=== PATIENT | female | born 1945 | race Caucasian/White ===

== ENCOUNTER 2017-03-05 10:48 | Outpatient (CLI) | payer MEDICARE, OTHER ==
[2014-11-01 13:03] VITALS: BMI 38.7
[~2017-03-05 10:48] MED LIST: BAYER CHEWABLE81 MG PO; BENADRYL INJ50 MG/ML IV; COZAAR50 MG PO; DETROL2 MG PO; ELIQUIS2.5 MG PO; GLUCOPHAGE1000 MG PO; GLUCOTROL 5 MG T5 MG PO; HCTZ25 MG PO; HYDROCODONE-APA1 TAB PO; KLONOPIN0.5 MG PO; MS CONTIN15 MG PO; MULTIPLE VITAMI1 TA1 PO; NORVASC5 MG PO; SYNTHROID100 MCG PO; ZOCOR40 MG PO
== END 2017-03-05 13:49 ==
LOC: D.MAMMO 10:48
DX: Z12.31 Encounter for screening mammogram for malignant neoplasm of breast (principal)

== ENCOUNTER → 2018-01-20 13:25 | Outpatient (CLI) | payer MEDICARE, OTHER ==
[2014-11-01 13:03] VITALS: BMI 38.7
== END | disposition home or self-care (01) ==
LOC: D.CT 13:25 → D.MRI 14:00 → D.CT 14:00
DX: R41.3 Other amnesia (principal)

== ENCOUNTER 2018-06-08 10:59 | Inpatient (IN) | payer MEDICARE, OTHER ==
[~2018-06-08] VITALS: Ht 167.6 cm; Wt 93.9 kg
--- NOTE | ~2018-06-08 | PN ---
PATIENT:LINDY COBOS MEDICAL RECORD: [id number] LOCATION:[facility] ADMISSION DATE: 06/08/18 PROGRESS NOTE DATE OF SERVICE: 06/19/2018 SUBJECTIVE: The patient's case was discussed with staff. She has no new complaint. OBJECTIVE: The patient is in good behavioral control with limited insight about her condition. ASSESSMENT: No change in diagnoses. PLAN: Brief supportive and educational interventions were made. Long-term prognosis is guarded. I am going to give her Klonopin, but just at bedtime for another day or two. I think that if this level of improvement continues, she can be discharged on Thursday. TRANSINT:[id number] Voice Confirmation ID: [id number] DOCUMENT ID: [id number] HOMER WOODSON MD at 1107 CC: [id number] DICTATION DATE: 06/19/18 1046 SAIL REPAIR PERSON: 06/19/18 1249 ADM IN [place] [address] [place] [address]
--- NOTE | ~2018-06-08 | PN ---
PATIENT:LINDY COBOS MEDICAL RECORD: [id number] LOCATION:[facility] ADMISSION DATE: 06/08/18 PROGRESS NOTE DATE OF SERVICE: 06/17/2018 SUBJECTIVE: The patient's case was discussed with staff. She has no new complaint. OBJECTIVE: The patient is in good behavioral control with limited insight about her condition. She tolerates her medicines well. ASSESSMENT: No change in diagnoses. PLAN: Supportive and educational interventions were made. Long-term prognosis is guarded. I anticipate she can be transitioned out of the hospital soon if this level of improvement continues. TRANSINT:[id number] Voice Confirmation ID: [id number] DOCUMENT ID: [id number] HOMER WOODSON MD at 1613 CC: [id number] DICTATION DATE: 06/17/18 1239 SOAKER HIDES: 06/17/18 1256 ADM IN [place] [id number] [place] [id number]
--- NOTE | ~2018-06-08 | PN ---
PATIENT:LINDY COBOS MEDICAL RECORD: [id number] LOCATION:[facility] ADMISSION DATE: 06/08/18 PROGRESS NOTE DATE OF SERVICE: 06/14/2018 SUBJECTIVE: The patient's case was discussed with staff. OBJECTIVE: The patient is tearful and very anxious. She is having trouble describing what is bothering her or at least I am having trouble understanding it. It appears that she is somehow upset with her family that she thinks she is supposed to have a ride home, but does not accept or understand that she is a patient here. ASSESSMENT: No change in diagnoses. PLAN: The patient is very disorganized in her thought processes. I am going to discontinue her Seroquel and will start her on a dose of Trilafon to assist with thought disorganization. TRANSINT:[id number] Voice Confirmation ID: [id number] DOCUMENT ID: [id number] HOMER WOODSON MD at 1354 CC: [id number] DICTATION DATE: 06/14/18 1508 FACILITIES MECHANICAL DESIGN ENGINEER: 06/14/18 1525 ADM IN [place] [address] [place] [address]
--- NOTE | ~2018-06-08 | PN ---
PATIENT:LINDY COBOS MEDICAL RECORD: [id number] LOCATION:[facility] ADMISSION DATE: 06/08/18 PROGRESS NOTE DATE OF SERVICE: 06/13/2018 SUBJECTIVE: The patient's case was discussed with staff. She has no new complaint. OBJECTIVE: The patient denies intent to harm herself or others. She is still very tearful and today delusional, crying, because she believes she is . When asked why she believes this, she just points to her abdomen, which is large because she is overweight and says that she is certain she is . She cannot be redirected from this. ASSESSMENT: No change in diagnoses. PLAN: Current medicines have been reviewed. I am going to increase the dose of her Klonopin to 0.25 mg 3 times daily. Her long-term prognosis is guarded. TRANSINT:[id number] Voice Confirmation ID: [id number] DOCUMENT ID: [id number] HOMER WOODSON MD at 1426 CC: [id number] DICTATION DATE: 06/13/18 1231 CLERK: 06/13/18 1314 ADM IN [place] [address] [place] [address]
--- NOTE | ~2018-06-08 | PN ---
PATIENT:LINDY COBOS MEDICAL RECORD: [id number] LOCATION:[facility] ADMISSION DATE: 06/08/18 PROGRESS NOTE DATE OF SERVICE: 06/15/2018 SUBJECTIVE: The patient's case was discussed with staff. She has no new complaint. OBJECTIVE: The patient is in good behavioral control and has not been combative. She actually is much more euthymic when I speak with her. Although, the nursing report indicated she had been very tearful this morning. ASSESSMENT: No change in diagnoses. PLAN: Supportive and educational interventions were made. Long-term prognosis is guarded. TRANSINT:[id number] Voice Confirmation ID: [id number] DOCUMENT ID: [id number] HOMER WOODSON MD at 0827 CC: [id number] DICTATION DATE: 06/15/18 1438 ENGINE TURNER: 06/15/18 1446 ADM IN [place] [id number] [place] [id number]
--- NOTE | ~2018-06-08 | PN ---
PATIENT:LINDY COBOS MEDICAL RECORD: [id number] LOCATION:[facility] ADMISSION DATE: 06/08/18 PROGRESS NOTE DATE OF SERVICE: 06/11/2018 SUBJECTIVE: The patient's case was discussed with staff. She has no new complaint. OBJECTIVE: The patient has not been aggressive. She is eating well and sleeping reasonably well. ASSESSMENT: No change in diagnoses. PLAN: Supportive and educational interventions were made. Long-term prognosis is guarded. I have started the patient on Namenda to improve her cognitive performance. TRANSINT:[id number] Voice Confirmation ID: [id number] DOCUMENT ID: [id number] HOMER WOODSON MD at 1151 CC: [id number] DICTATION DATE: 06/11/18 1454 DIRECTOR OF BUSINESS APPLICATIONS: 06/11/18 1651 ADM IN [facility] [address] [place] [address]
--- NOTE | ~2018-06-08 | PN ---
PATIENT:LINDY COBOS MEDICAL RECORD: [id number] LOCATION:[facility] ADMISSION DATE: 06/08/18 PROGRESS NOTE DATE OF SERVICE: 06/16/2018 SUBJECTIVE: The patient's case was discussed with staff. She has no new complaint. OBJECTIVE: The patient is in better behavioral control and not nearly as tearful as she has been. She is tolerating her medicines well. She denies that she would seek to harm herself or others. ASSESSMENT: No change in diagnoses. PLAN: Current medicines and therapies have been reviewed and will be maintained. I am going to increase the dose of her Zoloft to 50 mg daily. TRANSINT:[id number] Voice Confirmation ID: [id number] DOCUMENT ID: [id number] HOMER WOODSON MD at 1127 CC: [id number] DICTATION DATE: 06/16/18 1042 DECK BUILDER: 06/16/18 1114 ADM IN [facility] [address] [place] [address]
--- NOTE | ~2018-06-08 | PN ---
PATIENT:LINDY COBOS MEDICAL RECORD: [id number] LOCATION:[facility] ADMISSION DATE: 06/08/18 PROGRESS NOTE DATE OF SERVICE: 06/12/2018 SUBJECTIVE: The patient's case was discussed with staff. She has no new complaint. OBJECTIVE: The patient is quite anxious and tearful. She does not understand what is transpiring. ASSESSMENT: No change in diagnoses. PLAN: Current medicines and therapies have been reviewed. Her long-term prognosis is guarded. I am going to start her on a low dose of Seroquel to treat her underlying depressive symptoms. TRANSINT:[id number] Voice Confirmation ID: [id number] DOCUMENT ID: [id number] HOMER WOODSON MD at 1157 CC: [id number] DICTATION DATE: 06/12/18 121 COVERED BUCKLE ASSEMBLER: 06/12/18 1217 ADM IN [place] [id number] [place] [id number]
--- NOTE | ~2018-06-08 | PN ---
PATIENT:LINDY COBOS MEDICAL RECORD: [id number] [facility] ADMISSION DATE: 06/08/18 PROGRESS NOTE DATE OF SERVICE: 06/20/2018 SUBJECTIVE: The patient's case was discussed with staff. She has no new complaint. OBJECTIVE: The patient is in good behavioral control with limited insight about her condition. She does tolerate her medicines well. ASSESSMENT: No change in diagnoses. PLAN: Current medicines have been reviewed. I am going to increase the dose of the Zoloft and the BuSpar slightly. I anticipate she can be transitioned out of the hospital soon. TRANSINT:[id number] Voice Confirmation ID: [id number] DOCUMENT ID: [id number] HOMER WOODSON MD at 1100 CC: [id number] DICTATION DATE: 06/20/18 1128 AUTO TECH: 06/20/18 1352 ADM IN [facility] [address] [place] [address]
--- NOTE | ~2018-06-08 | PN ---
PATIENT:LINDY COBOS MEDICAL RECORD: [id number] LOCATION:[facility] ADMISSION DATE: 06/08/18 PROGRESS NOTE DATE OF SERVICE: 06/18/2018 SUBJECTIVE: The patient's case was discussed with staff. She has no new complaint. OBJECTIVE: The patient is in good behavioral control with limited insight about her condition. She is much calmer. ASSESSMENT: No change in diagnoses. PLAN: Supportive and educational interventions were made. Long-term prognosis is guarded. The patient is much calmer than she had previously been. TRANSINT:[id number] Voice Confirmation ID: [id number] DOCUMENT ID: [id number] HOMER WOODSON MD at 1007 CC: [id number] DICTATION DATE: 06/18/18 1653 BEAD FLIPPER: 06/18/18 1732 ADM IN [place] [address] [place] [address]
--- NOTE | ~2018-06-08 | PN ---
PATIENT:ILNDY COBOS MEDICAL RECORD: [id number] LOCATION:[facility] ADMISSION DATE: 06/08/18 PROGRESS NOTE DATE OF SERVICE: 06/21/2018 SUBJECTIVE: The patient's case was discussed with staff. She has no new complaint. OBJECTIVE: The patient is in good behavioral control with limited insight about her condition. She tolerates her medicines well. ASSESSMENT: No change in diagnoses. PLAN: Brief supportive and educational interventions were made. Long-term prognosis is guarded. Followup is to be with her primary care physician. She needs to have structure and regularity to her day along with supportive environment. The family is going to provide this along with 24-hour a day supervision. I do not see any evidence of acute or direct dangerousness, but I am concerned about her long-term prognosis. It is very difficult to do the things at home that the family is going to be asked to do, but they have agreed. The other issue is her condition is progressive, it will worsen. The only issue is how fast or slow it will be in worsening. She is going to be discharged today at her request and the family's request. Follow up will be with the primary care physician. TRANSINT:[id number] Voice Confirmation ID: [id number] DOCUMENT ID: [id number] HOMER WOODSON MD at 1348 CC: [id number] DICTATION DATE: 06/21/18 1137 LIEUTENANT FIREFIGHTER: 06/21/18 1442 DIS IN 06/21/18 [place] [address] [place] [address]
--- NOTE | ~2018-06-08 | PSY ---
PATIENT NAME:LINDY COBOS MEDICAL RECORD: [id number] : 45 LOCATION:[facility] ADMISSION DATE: 06/08/18 ACCOUNT: [id number] PSYCHIATRIC EVALUATION DATE OF EVALUATION: 06/09/18 IDENTIFYING DATA: The patient is 73 years old and she is admitted to the hospital on a voluntary basis. CHIEF COMPLAINT: Aggression. HISTORY OF PRESENT ILLNESS: The patient lives at home with her family. She has an established diagnosis of dementia. She has become aggressive with her family and they cannot manage her or redirect her. She is confused, tearful, anxious. She is slamming doors and attacking her caregivers. The patient has little or no recollection of this. She is tearful when I interview her and confused. PAST MEDICAL AND SURGICAL HISTORY: Significant for diabetes, hypothyroidism, hypertension, cardiac arrhythmia with pacemaker and multiple surgeries including left knee replacement, cataract, and gallbladder surgery. PAST PSYCHIATRIC HISTORY: Significant for an established diagnosis of dementia. FAMILY HISTORY: Unknown. The patient is considered an unreliable historian. ALLERGIES: No known drug allergies. CURRENT MEDICATIONS: Include Cozaar, Zocor, Detrol, HydroDIURIL, Glucotrol, Klonopin, Norvasc, Synthroid, Glucophage, Prinivil, aspirin, Seroquel, Desyrel, and Lipitor. SOCIAL HISTORY: The patient is . 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 She has no history of drug or alcohol dependence. MENTAL STATUS EXAMINATION: The patient is awake, alert and oriented to person only. Her mood is flat. Her affect is constricted. Thought processes are circumstantial. Memory, concentration, and abstraction abilities are moderately impaired and she denies any active intent to harm herself or others as well as any overt psychotic symptoms. ASSETS: Supportive family members. LIABILITIES: Limited insight. DIAGNOSTIC IMPRESSION: AXIS I: Senile dementia of the Alzheimer's type with behavioral disturbances. AXIS II: None. AXIS III: Hypertension, hypothyroidism, diabetes, hyperlipidemia, bradycardia, osteoarthritis and status post cardiac pacemaker placement. AXIS IV: Moderate. AXIS V: Global assessment of functioning is 35. PLAN: At this time, the patient is admitted to the hospital secondary to confusion and aggression associated with a dementing illness. She will be comprehensively evaluated from both a medical, psychological, and social standpoint. She will be treated with both mood stabilizing and memory enhancing medications. Her long-term prognosis is guarded. TRANSINT:[id number] Voice Confirmation ID: [id number] DOCUMENT ID: [id number] HOMER WOODSON MD at 1340 CC: [id number] DICTATION DATE: 06/09/18 1452 DEPUTY FIRE MARSHAL: 06/09/18 1512 [facility] IN [place] [id number] [place] [id number]
--- NOTE | ~2018-06-08 | PN ---
PATIENT:LINDY COBOS MEDICAL RECORD: [id number] LOCATION:[facility] ADMISSION DATE: 06/08/18 PROGRESS NOTE DATE OF SERVICE: 06/10/2018 SUBJECTIVE: The patient's case was discussed with staff. She has no new complaint. OBJECTIVE: The patient is sleeping and eating well. She is extremely confused. She has not been aggressive today. ASSESSMENT: No change in diagnoses. PLAN: The patient will be maintained on current medicines. Brief supportive and educational interventions were made. TRANSINT:[id number] Voice Confirmation ID: [id number] DOCUMENT ID: [id number] HOMER WOODSON MD at 1406 CC: [id number] DICTATION DATE: 06/10/18 1456 YARDAGE TUFTING MACHINE OPERATOR: 06/10/18 1527 ADM IN [place] [id number] [place] [address]
--- NOTE | ~2018-06-08 | DS ---
PATIENT:LINDY COBOS :45 MEDICAL RECORD: [id number] DISCHARGE SUMMARY ADMISSION DATE: 06/08/18 DISCHARGE DATE: 06/21/18 PSYCHIATRIC DISCHARGE SUMMARY IDENTIFYING DATA: The patient is 73 years old and she is admitted to the hospital on a voluntary basis because of aggression. The patient lives at home with her family and has an established diagnosis of dementia. She has become aggressive with her family and they cannot manage her or redirect her. She is confused, tearful, and anxious. She has been slamming doors and attacking her caregivers. The patient was tearful and had no recollection of this. HOSPITAL COURSE: The patient was admitted to the hospital and fully evaluated from both a medical, psychological, and social standpoint. She was treated with both mood stabilizing and memory enhancing medications. Her long-term prognosis is guarded. She showed significant improvement, was very calm, but still had evidence of pretty significant cognitive impairment. A 26-uhse-u-day supervision was recommended and the family felt that they could accomplish this at home, so she was discharged home with her family. DISCHARGE DIAGNOSES: AXIS I: Senile dementia of the Alzheimer's type with behavioral disturbances. AXIS II: None. AXIS III: Hypertension, hypothyroidism, diabetes, hyperlipidemia, bradycardia, osteoarthritis, and status post cardiac pacemaker placement. AXIS IV: Moderate. AXIS V: Global assessment of functioning is 40. PLAN: At the time of discharge, the patient was in good behavioral control and had no evidence of acute or direct dangerousness. She was tolerating her medications well. TRANSINT:[id number] Voice Confirmation ID: [id number] DOCUMENT ID: [id number] HOMER WOODSON MD at 1024 CC: [id number] DICTATION DATE: 06/24/18 0959 CLINICAL APPLICATIONS MANAGER: 06/24/18 2159 DIS IN 06/21/18 [place] [address] [place] [address]
[2018-06-08] MEDS ORDERED: LIPITOR80 MG PO (11:16)
[2018-06-08] MEDS ORDERED: DESERYL50 M2 PO (11:17)
[2018-06-08] MEDS ORDERED: DONEPEZIL HCL10 M1 PO (11:17)
[2018-06-08] MEDS ORDERED: ASPIRIN81 MG PO (11:18)
[2018-06-08] MEDS ORDERED: PRINIVIL10 MG PO (11:18)
[2018-06-08] MEDS ORDERED: SEROQUEL50 MG PO (11:18)
[2018-06-08 12:13] LABS: BASOPHILS 0.3 % (0-2); EOSINOPHILS 4.6 % (0-7); HEMATOCRIT 41.8 % (36.0-48.0); HEMOGLOBIN 13.9 g/dL (12-16); IMMATURE GRANULOCYTES 0.3 % (0-5); LYMPHOCYTES 29.5 % (15-50); MCH 29.6 pg (26.0-34.0); MCHC 33.3 g/dL (31.0-37.0); MCV 88.9 fL (80.0-100.0); MEAN PLATELET VOLUME 11.9 fL (7.4-10.4); MONOCYTES 6.7 % (2-11); NEUTROPHILS 58.6 % (40-80); RDW 13.5 % (11.5-14.5); WBC 8.6 10x3/uL (4.8-10.8)
[2018-06-08 12:14] LABS: PLATELET COUNT 198 10x3/uL (130-400)
[2018-06-08 12:27] LABS: ALBUMIN 3.2 g/dL (3.4-5.0); ANION GAP 10.9 mmol/L (8-16); BILIRUBIN - TOTAL 0.38 mg/dL (0.2-1.3); CALCIUM 8.8 mg/dL (8.5-10.1); CARBON DIOXIDE 25.4 mmol/L (21.0-32.0); POTASSIUM - SERUM 4.3 mmol/L (3.5-5.1); PROTEIN - SERUM 6.8 g/dL (6.4-8.2)
[2018-06-08 13:59] LABS: APPEARANCE CLEAR (CLEAR); BILIRUBIN NEGATIVE (NEGATIVE); COLOR YELLOW (YELLOW); GLUCOSE NEGATIVE (NEGATIVE); KETONE NEGATIVE (NEGATIVE); NITRITE NEGATIVE (NEGATIVE); PROTEIN NEGATIVE (NEGATIVE); SPECIFIC GRAVITY 1.015 (1.005-1.020); UROBILINOGEN NORMAL (NORMAL)
[2018-06-08 14:00] LABS: RED CELLS - URINE NONE SEEN /hpf (0-5); WHITE CELLS - URINE 0-5 /hpf (0-5)
[2018-06-08 14:03] LABS: UDS - AMPHET NEGATIVE QUAL (NEGATIVE); UDS - BARB NEGATIVE QUAL (NEGATIVE); UDS - BENZO NEGATIVE QUAL (NEGATIVE); UDS - COCAINE NEGATIVE QUAL (NEGATIVE); UDS - OPIATE NEGATIVE QUAL (NEGATIVE); UDS - PCP NEGATIVE QUAL (NEGATIVE); UDS - THC NEGATIVE QUAL (NEGATIVE)
[2018-06-08 19:46] VITALS: BP 160/76
[2018-06-09] VITALS: BMI 33.5
[2018-06-09 07:49] LABS: CHOL - HDL RATIO 3.2 ratio (2.3-4.1); LDL-HDL RATIO 1.6 ratio (1.5-3.5); THYROID STIMULATING HORMONE 1.3 uIU/mL (0.36-3.74)
[2018-06-09 08:00] VITALS: BP 170/85
[2018-06-09 09:55] VITALS: BMI 33.4
[2018-06-09 20:24] VITALS: BP 121/80
[2018-06-10 07:28] LABS: VITAMIN D 25 HYDROXY 36.2 ng/mL (30.0-100.0)
[2018-06-10 08:20] LABS: RAPID PLASMA REAGIN Non Reactive (Non Reactive)
[2018-06-10 09:18] LABS: FOLATE (FOLIC ACID) - SERUM 16.2 ng/mL (>3.0)
[2018-06-10 09:47] VITALS: BP 144/99; BP 160/83
[2018-06-10 21:02] VITALS: BP 127/69
[2018-06-11 09:07] VITALS: BP 134/91
[2018-06-11 19:48] VITALS: BP 115/56
[2018-06-12 08:00] VITALS: BP 107/72
[2018-06-12 19:39] VITALS: BP 111/56
[2018-06-13 08:00] VITALS: BP 147/72
[2018-06-13 19:59] VITALS: BP 118/58
[2018-06-14 08:00] VITALS: BP 113/63
[2018-06-14 13:40] VITALS: Ht 167.6 cm; Wt 93.9 kg
[2018-06-14 20:29] VITALS: BP 129/70
[2018-06-15 08:00] VITALS: BP 122/58
[2018-06-15 20:02] VITALS: BP 109/54
[2018-06-16 08:35] VITALS: BP 132/62
[2018-06-16 19:56] VITALS: BP 115/70
[2018-06-17 10:05] VITALS: BP 118/73
[2018-06-17 20:00] VITALS: BP 121/69
[2018-06-18 09:26] VITALS: BP 120/77
[2018-06-18 20:04] VITALS: BP 129/75
[2018-06-19 10:30] VITALS: BP 115/58
[2018-06-19 20:27] VITALS: BP 118/59
[2018-06-20 08:11] VITALS: BP 134/69
[2018-06-20] MEDS ORDERED: BUSPAR10 MG PO (11:32)
[2018-06-20] MEDS ORDERED: ZOLOFT100 MG PO (11:32)
[2018-06-20] MEDS ORDERED: NAMENDA5 MG PO (11:32)
[2018-06-20] MEDS ORDERED: PERPHENAZINE2 MG PO (11:32)
[2018-06-20 20:14] VITALS: BP 124/64
[2018-06-21 08:00] VITALS: BP 148/68
== END 2018-06-21 13:15 | disposition home or self-care (01) | DRG 57 ==
LOC: D.ER 10:59 → D.PSYCH 16:20
PROVIDERS: Family Medicine; Psychiatry & Neurology Psychiatry
DX: G30.1 Alzheimer's disease with late onset (principal); F02.81 Dementia in other diseases classified elsewhere, unspecified severity, with behavioral disturbance; I10 Essential (primary) hypertension; E03.9 Hypothyroidism, unspecified; E11.9 Type 2 diabetes mellitus without complications; E78.5 Hyperlipidemia, unspecified; Z95.0 Presence of cardiac pacemaker; M19.90 Unspecified osteoarthritis, unspecified site; F41.9 Anxiety disorder, unspecified; F32.9 Major depressive disorder, single episode, unspecified; M48.00 Spinal stenosis, site unspecified; R32 Unspecified urinary incontinence